=== PATIENT | female | born 1955 | race Caucasian/White ===

== ENCOUNTER → 2017-08-13 | Outpatient (CLI) | payer OTHER ==
[~2017-08-13] MED LIST: BUPR-79 PO; COEN1CAP PO; DRGTP25 TD; OXYC-164 PO; OXYC1TAB3 PO; PARO1TAB29 PO; SIMV10TA2 PO
--- NOTE | 2017-08-13 10:47 | DIAGNOSTIC IMAGING REPORT ---
AP STANDING VIEW OF BOTH KNEES; 3 VIEWS RIGHT KNEE CLINICAL HISTORY: Right knee pain. FINDINGS: An AP standing view of both knees with lateral, tunnel, and sunrise views of the right knee are compared to study dated 09/09/2015. The skeletal structures are osteopenic. No fracture is seen. There is moderate tricompartmental degenerative joint space narrowing in the right knee, greatest in the medial and patellofemoral compartments. There are small marginal osteophytes. A calcified fabella is incidentally noted. No evidence of osteochondral defect is seen on the tunnel view. There is mild degenerative beaking of the tibial spine. No joint effusion is seen. The overlying soft tissues are within normal limits. Survey images of the left knee on the frontal view show an arthroplasty in near-anatomic alignment. No periprosthetic lucency is seen. IMPRESSION: 1. No acute bony abnormality is seen in the right knee. 2. Osteopenia and arthritic change as above. This is similar in appearance to the 09/09/2015 examination. 3. A left knee arthroplasty is noted. Electronically signed by: Nilo Parra M.D. 08/13/2017 10:45 AM Dictated Date/Time: 08/13/2017 10:43 AM
== END | disposition home or self-care (01) ==
LOC: C.RDSM 13:43
PROVIDERS: ATTEND Internal Medicine
DX: M25.561 Pain in right knee (principal); M85.88 Other specified disorders of bone density and structure, other site; M17.11 Unilateral primary osteoarthritis, right knee; Z96.652 Presence of left artificial knee joint